=== PATIENT | female | born 1935 | race African-American/Black ===

== ENCOUNTER 2020-11-30 16:00 | Emergency (ER) | payer MEDICARE ==
[~2020-11-30] VITALS: Ht 152.4 cm; Wt 75.9 kg
--- NOTE | 2020-11-30 17:37 | RAD ---
Study: XR SHOULDER_RIGHT 2+ VIEWS Indication: Fall. Comparison: None. Findings: Alignment is within normal limits. No acute fracture. Probable small focus of hydroxyapatite depositi on in the region of the infraspinatus insertion. Arthrosis is minimal for patient age. Impression: No acute fracture or malalignment seen at the right shoulder. Electronically signed by: ROLAN RUBIN MD (11/30/2020 5:34 PM) [facility]
--- NOTE | 2020-11-30 17:37 | RAD ---
Exam: CT head and cervical spine without contrast INDICATION: Fall TECHNIQUE: Sequential axial images through the head and cervical spine were obtained without the admi nistration of IV contrast. Exposure: One or more of the following in the visualized dose reduction techniques were utilized for this examination: 1. Automated exposure control 2. Adjustment of the MA and/or KV according to patient size 3. Use of iterative of reconstructive technique Comparisons: None FINDINGS: Head: No focal parenchymal lesion or hemorrhage is identified. There is no midline shift or sulcal effaceme nt. No acute vascular territory infarction is identified. Sharpe-white distinction is preserved. The ventricular system is within normal limits without compression hydrocephalus. The basal cisterns are well maintained. The visualized portions of the paranasal sinuses and mastoid air cells are well-pneumatized. No acute fractures. Cervical spine: Straightening of the cervical spine which may positional. Grade 1 anterolisthesis of C4 on C5. Fracture to the cervical spine is not identified. Multilevel spondylotic change in the cervical spine with degenerative disc disease greatest at C4-C5, C5-C6. Mild bilateral facet arthropathy is also noted in the cervical spine. Visualized paraspinal soft tissues are unremarkable. IMPRESSION: 1. No acute intracranial abnormality. 2. Negative CT C-spine for acute traumatic injury. Electronically signed by: Terrell Calhoun MD (11/30/2020 5:34 PM) [facility]
--- NOTE | 2020-11-30 17:39 | RAD ---
Study: XR BILATERAL HIP (WITH OR WITHOUT PELVIS) 2 VIEWS_RIGHT Indication: Fall. Comparison: None. Findings: No acute fracture or malalignment seen at the right hip. Intact obturator rings. Mild localized thickening of the medial cortex on the left just below the lesser trochanter. Incompletely assessed degenerative changes at the lower lumbar spine. No malalignment across the sacr oiliac joints or pubic symphysis. Impression: 1. No acute fracture or malalignment. 2. Mild thickening of the medial cortex on the left just below the lesser trochanter. Correlate for a ny left hip pain and follow-up radiographs could be performed in 2-4 weeks to help exclude a developi ng stress fracture. Electronically signed by: ROLAN RUBIN MD (11/30/2020 5:37 PM) [facility]
--- NOTE | 2020-11-30 17:41 | RAD ---
Study: XR KNEE 4 VIEWS WITH PATELLA_RT Indication: Fall. Comparison: None. Findings: No acute fracture. Alignment is anatomic. Maintained femorotibial compartment joint space height. Min imal arthrosis for patient age with tiny osteophytes at a few locations. No large knee joint effusion. Impression: 1. No acute osseous abnormality. 2. Minimal knee joint arthrosis for patient age. Electronically signed by: ROLAN RUBIN MD (11/30/2020 5:39 PM) [facility]
--- NOTE | 2020-11-30 18:19 | PHYS DOC ---
Past History Past Medical History: Diabetes, Hypertension, Kidney Stones (LEIGHA CLARK APRN) Past Surgical History: Cholecystectomy, Hysterectomy, Oophorectomy, Other Additional Past Surgical Histo: lithrotipsy (LEIGHA CLARK APRN) Alcohol Use: Occasionally (LEIGHA CLARK APRN) Adult General Chief Complaint Chief Complaint: MECHANICAL FALL HPI HPI Patient is a 85-year-old female who presents to the emergency department with complaints of a slip and fall down her steps. Patient's family states she had a 17-minute loss of consciousness. Patient arrives to the emergency department complaining of head pain neck pain right shoulder pain right hip pain and right knee pain. Patient states she has a history of hypertension, type 2 diabetes, and high cholesterol. Patient reports taking amlodipine, potassium supplement, Metformin, daily 81 mg aspirin, a fish oil supplement, and simvastatin. Patient's family states that the patient is visiting from out of town. Patient denies any visual disturbances, denies chest pain, denies shortness of breath, denies nausea, vomiting, or diarrhea. Patient reports an 8/10 on a 1-10 pain scale. Patient reports her last tetanus shot was greater than 5 years ago. (LEIGHA CLARK APRN) Review of Systems Review of Systems 14 body systems of review of systems have been reviewed. See HPI for pertinent positives and negative responses, otherwise all other systems are negative, nonpertinent or noncontributory. (LEIGHA CLARK APRN) Allergies Allergies Allergies Coded Allergies Type Severity Reaction Last Updated Verified Iodine and Iodide Containing Produc Allergy Severe Anaphylaxis 11/30/20 Yes lisinopril Allergy Unknown 11/30/20 Yes Uncoded Allergies Type Severity Reaction Last Updated Verified SULFA Allergy Severe Anaphylaxis 11/30/20 (LEIGHA CLARK APRN) Physical Exam Physical Exam Constitutional: Well developed, well nourished, no acute distress, non-toxic appearance. 85-year-old female no apparent distress. HENT: Normocephalic, atraumatic, bilateral external ears normal, oropharynx moist, no oral exudates, nose normal. No depressions or hematomas appreciated of the scalp. No drooling, no trismus, no drainage from nasal turbinates, no drainage from bilateral external auditory canals, bilateral TMs within normal limits however partially obstructed by cerumen. No raccoon eyes, no farris sign. Eyes: PERRLA, EOMI, conjunctiva normal, no discharge. Neck: Normal range of motions, supple, no stridor. Tenderness to palpation along right side of neck. No C-spine tenderness to palpation. No step-offs, no crepitus appreciated, no bruising of the neck appreciated. Cardiovascular:Heart rate regular rhythm, no murmur, heart sounds S1-S2 to auscultation Lungs & Thorax: Bilateral breath sounds clear to auscultation no adventitious lung sounds appreciated. Abdomen: Bowel sounds normal, soft, no tenderness, no masses, no pulsatile masses. Skin: Warm, dry, no erythema, no rash. There is a small 3 cm x 1/2 cm abrasion to the right english, no bleeding. Back: No tenderness, no CVA tenderness. Extremities: No tenderness, no cyanosis, no clubbing, ROM intact, no edema. Except for right shoulder, right hip, and right knee, patient complains of pain to palpation. No crepitus appreciated, no deformities appreciated, distal cap refill less than 2 seconds, +2 dorsalis pedis/posterior tibial pulse. Neurologic: Alert and oriented X 3, normal motor function, normal sensory function, no focal deficits noted. Psychologic: Affect normal, judgement normal, mood normal. (LEIGHA CLARK APRN) Current Patient Data Vital Signs Vital Signs Date Time Temp Pulse Resp B/P (MAP) Pulse Ox O2 Delivery O2 Flow Rate FiO2 11/30/20 16:16 98.3 81 12 188/98 (128) 96 Room Air (LEIGHA CLARK APRN) EKG EKG EKG performed at 1852 by house respiratory therapy staff shows a heart rate of 76 bpm normal sinus rhythm without ectopy, PA interval 0.140, QTc interval 0.474, no acute STEMI, no ACS, no acute ischemia appreciated, EKG interpreted by ED attending physician Dr. Anderson. (LEIGHA CLARK APRN) EKG My interpretation EKG shows a sinus rhythm at 76 bpm. The does have a leftward axis. And left bundle branch block. No findings acute STEMI of contralateral changes. (JENN ANDERSON MD) Radiology/Procedures Radiology/Procedures [] PATIENT: JULES HOLT ACCOUNT: [id number] : 1935 LOCATION: ER AGE: 85 SEX: F EXAM STATUS: REG ER ORD. PHYSICIAN: LEIGHA CLARK APRN REASON: FALL PROCEDURE: CT HEAD AND CERVICAL SPINE WO Exam: CT head and cervical spine without contrast INDICATION: Fall TECHNIQUE: Sequential axial images through the head and cervical spine were obtained without the administration of IV contrast. Exposure: One or more of the following in the visualized dose reduction techniques were utilized for this examination: 1. Automated exposure control 2. Adjustment of the MA and/or KV according to patient size 3. Use of iterative of reconstructive technique Comparisons: None FINDINGS: Head: No focal parenchymal lesion or hemorrhage is identified. There is no midline shift or sulcal effacement. No acute vascular territory infarction is identified. Sharpe-white distinction is preserved. The ventricular system is within normal limits without compression hydrocephalus. The basal cisterns are well maintained. The visualized portions of the paranasal sinuses and mastoid air cells are well- pneumatized. No acute fractures. Cervical spine: Straightening of the cervical spine which may positional. Grade 1 anterolisthesis of C4 on C5. Fracture to the cervical spine is not identified. Multilevel spondylotic change in the cervical spine with degenerative disc disease greatest at C4-C5, C5-C6. Mild bilateral facet arthropathy is also noted in the cervical spine. Visualized paraspinal soft tissues are unremarkable. IMPRESSION: 1. No acute intracranial abnormality. 2. Negative CT C-spine for acute traumatic injury. Electronically signed by: Terrell Doll MD (11/30/2020 5:34 PM) [facility] DICTATED AND SIGNED BY: TERRELL DOLL MD DATE: 11/30/201728 CC: LEIGHA CLARK APRN; NON,STAFF ~MTH0 0 PATIENT: JULES HOLT ACCOUNT: [id number] : 1935 LOCATION: ER AGE: 85 SEX: F EXAM STATUS: REG ER ORD. PHYSICIAN: LEIGHA CLARK APRN REASON: FALL PROCEDURE: SHOULDER 2+V RIGHT Study: XR SHOULDER_RIGHT 2+ VIEWS Indication: Fall. Comparison: None. Findings: Alignment is within normal limits. No acute fracture. Probable small focus of hydroxyapatite deposition in the region of the infraspinatus insertion. Arthrosis is minimal for patient age. Impression: No acute fracture or malalignment seen at the right shoulder. Electronically signed by: ROLAN RUBIN MD (11/30/2020 5:34 PM) [facility] DICTATED AND SIGNED BY: ROLAN RUBIN MD DATE: 11/30/201732 CC: LEIGHA CLARK APRN; NON,STAFF ~MTH0 0 PATIENT: JULES HOLT ACCOUNT: [id number] : 1935 LOCATION: ER AGE: 85 SEX: F EXAM STATUS: REG ER ORD. PHYSICIAN: LEIGHA CLARK APRN REASON: FALL PROCEDURE: HIP RIGHT 2V WITH PELVIS Study: XR BILATERAL HIP (WITH OR WITHOUT PELVIS) 2 VIEWS_RIGHT Indication: Fall. Comparison: None. Findings: No acute fracture or malalignment seen at the right hip. Intact obturator rings. Mild localized thickening of the medial cortex on the left just below the lesser trochanter. Incompletely assessed degenerative changes at the lower lumbar spine. No malalignment across the sacroiliac joints or pubic symphysis. Impression: 1. No acute fracture or malalignment. 2. Mild thickening of the medial cortex on the left just below the lesser trochanter. Correlate for any left hip pain and follow-up radiographs could be performed in 2-4 weeks to help exclude a developing stress fracture. Electronically signed by: ROLAN RUBIN MD (11/30/2020 5:37 PM) [facility] DICTATED AND SIGNED BY: ROLAN RUBIN MD DATE: 11/30/201733 CC: LEIGHA CLARK APRN; NON,STAFF ~MTH0 0 PATIENT: JULES HOLT ACCOUNT: [id number] : 1935 LOCATION: ER AGE: 85 SEX: F EXAM STATUS: REG ER ORD. PHYSICIAN: LEIGHA CLARK APRN REASON: FALL PROCEDURE: KNEE RIGHT 4V Study: XR KNEE 4 VIEWS WITH PATELLA_RT Indication: Fall. Comparison: None. Findings: No acute fracture. Alignment is anatomic. Maintained femorotibial compartment joint space height. Minimal arthrosis for patient age with tiny osteophytes at a few locations. No large knee joint effusion. Impression: 1. No acute osseous abnormality. 2. Minimal knee joint arthrosis for patient age. Electronically signed by: ROLAN RUBIN MD (11/30/2020 5:39 PM) [facility] DICTATED AND SIGNED BY: ROLAN RUBIN MD DATE: 11/30/201737 CC: LEIGHA CLARK APRN; NON,STAFF ~MTH0 0 (LEIGHA CLARK APRN) Heart Score C/O Chest Pain: No Risk Factors: Risk Factors: DM, Current or recent (<one month) smoker, HTN, HLP, family h istory of CAD, obesity. Risk Scores: Risk Factors: DM, Current or recent (<one month) smoker, HTN, HLP, family history of CAD, obesity. (LEIGHA CLARK APRN) Course & Med Decision Making Course & Med Decision Making Pertinent Labs and Imaging studies reviewed. (See chart for details) 85-year-old female, vital signs reviewed, presents emergency department concerning a fall with a 17-minute loss of consciousness witnessed and timed by family. Physical examination concerning for pain to multiple joints and bones most likely related to patient's complaint fall. Will CT head and C-spine without contrast, for right shoulder, right knee, right hip x-ray. Give 15 mg Toradol for pain. The patient's tetanus status was greater than 5 years, DTaP ordered, patient's tetanus status brought up-to-date today in the emergency department. Right english abrasion cleansed and dressed with Polysporin by ED nursing staff. CT head and C-spine negative for acute process, CT of right shoulder and right knee negative for acute process, Mild thickening of the medial cortex on the left just below the lesser trochanter. Correlate for any left hip pain and follow-up radiographs could be performed in 2-4 weeks to help exclude a developing stress fracture. Discussed with patient and patient's family admission to hospital related to x- ray finding of right hip, and fall with 17-minute loss of consciousness. Patient's family and patient is amenable to this plan. Called and reviewed case with hospital inpatient management Dr. Dickson who agreed to accept patient in transfer to [facility] with the information he was given by me. Dr. Dickson requested CT imaging hip related to radiologist interpretation of questionable developing stress fracture. Will order test prior to patient's transfer to [facility]. Discussed transfer to [facility] with patient to be cared for by hospital inpatient management Dr. Dickson, patient is amenable to this plan. Currently awaiting ambulance transfer to [facility]. (LEIGHA CLARK APRN) Dragon Disclaimer Dragon Disclaimer This electronic medical record was generated, in whole or in part, using a voice recognition dictation system. (LEIGHA CLARK APRN) Departure Departure: Impression: Primary Impression: Fall (on) (from) other stairs and steps, initial encounter Additional Impressions: Loss of consciousness Abnormal x-ray of extremity Abrasion Need for DTaP vaccine Disposition: 02 SHORT TERM HOSPITAL Admitting Physician: Bharat Dickson (Patient transferred to [facility] to Dr. Dickson.) (LEIGHA CLARK APRN) Referrals: NON,STAFF (PCP) Attending Signature Attending Signature I have participated in the care of this patient and I have reviewed and agree with all pertinent clinical information above including history, exam, and re commendations. (JENN ANDERSON MD) Problem Qualifiers LEIGHA CLARK APRN November 30, 2020 18:19 JENN ANDERSON MD November 30, 2020 19:06
[2020-11-30] MEDS ORDERED: KETOROLAC 15 MG/ML VIAL. IVP ONE (18:45)
[2020-11-30 19:31] LABS: BASO # 0.1 x10^3/uL (0.0-0.2); BASO % 0 % (0-3); EOS # 0.2 x10^3/uL (0.0-0.7); EOS % 1 % (0-3); HEMATOCRIT 36.4 % (36.0-47.0); LYMPH # 2.3 x10^3/uL (1.0-4.8); LYMPH % 14 % (24-48); MEAN CORPUSCULAR HEMOGLOBIN 33 pg (25-35); MEAN CORPUSCULAR HGB CONC 33 g/dL (31-37); MEAN CORPUSCULAR VOLUME 101 fL (79-100); MONO % 6 % (0-9); NEUT # 12.3 x10^3uL (1.8-7.7); NEUT % 78 % (31-73); PLATELET COUNT 433 x10^3/uL (140-400); RED BLOOD COUNT 3.59 x10^6/uL (3.50-5.40); RED CELL DISTRIBUTION WIDTH 14.9 % (11.5-14.5); WHITE BLOOD COUNT 15.8 x10^3/uL (4.0-11.0)
[2020-11-30 19:37] LABS: CALCIUM 8.8 mg/dL (8.5-10.1); GFR 63.9; POTASSIUM 3.5 mmol/L (3.5-5.1)
[2020-11-30 19:43] LABS: ALBUMIN 3.4 g/dL (3.4-5.0); ALBUMIN/GLOBULIN RATIO 0.8 (1.0-1.7); TOTAL BILIRUBIN 0.4 mg/dL (0.2-1.0); TOTAL PROTEIN 7.7 g/dL (6.4-8.2)
[2020-11-30 19:53] LABS: % BANDS 1 % (0-9); % BASOS 1 % (0-3); % EOS 1 % (0-5); % LYMPHS 21 % (24-48); % MONOS 2 % (0-10); % SEGS 74 % (35-66)
[2020-11-30 19:54] LABS: PLT ESTIMATE INCREASED (ADEQUATE)
[2020-11-30] MEDS ORDERED: BACITRACIN ZINC TOPICAL OINT PACKET. TP ONE (20:00)
[2020-11-30 20:05] LABS: MAGNESIUM 1.6 mg/dL (1.8-2.4); PHOSPHORUS 3.2 mg/dL (2.6-4.7)
--- NOTE | 2020-11-30 20:14 | EKG ---
[address] [address] Test Date: 2020-11-30 Test Time: 18:52:43 Pat Name: JULES HOLT Department: Room: Gender: F [employer]: : 1935 Requested By: LEIGHA CLARK Order Number: [id number] Reading MD: Measurements Intervals [place]eter Rate: 76 P: 1 AK: 140 QRS: -42 QRSD: 124 T: 106 QT: 422 QTc: 474 Interpretive Statements SINUS RHYTHM ABNORMAL LEFT AXIS DEVIATION LEFT BUNDLE BRANCH BLOCK ABNORMAL ECG RI6.02 No previous ECG available for comparison
[2020-11-30] MEDS ORDERED: DIPH,PERTUSS(ACELL),TET VAC/PF 0.5 ML SYRINGE. VAX IM ONE (20:15)
--- NOTE | 2020-11-30 22:09 | RAD ---
STUDY: CT of the right lower extremity without contrast INDICATION: Right hip pain. COMPARISON: Same day radiographs. TECHNIQUE: Axial CT imaging of the right lower extremity/hip performed without contrast. Coronal and sagittal reformats were obtained. One or more of the following individualized dose reduction techniques were utilized for this examinat ion: 1. Automated exposure control 2. Adjustment of the mA and/or kV according to patient size 3. Use of iterative reconstruction technique. FINDINGS: No acute fracture or malalignment seen at the right hip. Mild right hip arthrosis. Chronic changes at the greater trochanter.. The right obturator ring is intact. Pubic symphysis arthrosis. Reticulation of the fat lateral to the right hip could be bland edema or related to contusion. No evidence for a large hip joint effusion. Colonic diverticuli. IMPRESSION: 1. No acute fracture at the right hip. Mild arthrosis. If there is ongoing concern MRI would be more sensitive and could also better assess for soft tissue injury. 2. Either bland edema or mild subcutaneous contusion lateral to the right hip. Electronically signed by: ROLAN RUBIN MD (11/30/2020 10:07 PM) [facility]
--- NOTE | 2020-11-30 22:59 | RAD ---
STUDY: CT of the left lower extremity without contrast INDICATION: Possible stress fracture at the proximal left femur. COMPARISON: Same day radiographs. TECHNIQUE: Axial CT imaging of the left lower extremity/hip performed without contrast. Coronal and s agittal reformats were obtained. One or more of the following individualized dose reduction techniques were utilized for this examinat ion: 1. Automated exposure control 2. Adjustment of the mA and/or kV according to patient size 3. Use of iterative reconstruction technique. FINDINGS: The small area of cortical thickening at the medial cortex of the left femur a few centimeters below the lesser trochanter is favored remodeling at an enthesis. No ancillary findings to suggest otherwis e. No acute fracture seen at the left hip. Chronic changes along the greater tuberosity. Minimal hip arthrosis. Colonic diverticulosis. IMPRESSION: No acute fracture or malalignment at the left hip. On the same day radiographs the abnormality at the medial femoral cortex below the lesser trochanter is favored remodeling at enthesis. No dedicated fo llow-up is needed unless otherwise clinically indicated noting that if follow-up is performed MRI wou ld be more beneficial than CT. Electronically signed by: ROLAN RUBIN MD (11/30/2020 10:56 PM) [facility]
[2020-11-30 23:30] VITALS: BP 141/80
== END 2020-11-30 23:41 | disposition short-term general hospital (02) ==
LOC: ER 16:00
DX: S80.811A Abrasion, right lower leg, initial encounter (principal); R55 Syncope and collapse; R93.6 Abnormal findings on diagnostic imaging of limbs; M54.2 Cervicalgia; R51.9 Headache, unspecified; M25.511 Pain in right shoulder; M25.551 Pain in right hip; M25.561 Pain in right knee; E78.00 Pure hypercholesterolemia, unspecified; I10 Essential (primary) hypertension; E11.9 Type 2 diabetes mellitus without complications; Z87.442 Personal history of urinary calculi; Z88.8 Allergy status to other drugs, medicaments and biological substances; W10.8XXA Fall (on) (from) other stairs and steps, initial encounter; Y93.89 Activity, other specified; Y92.89 Other specified places as the place of occurrence of the external cause; Y99.8 Other external cause status
CPT/HCPCS: 36415; 70450; 72125; 73030; 73502; 73564; 73700; 80053; 83735; 84100; 85007; 85025; 90471; 90715; 93005; 96374; 99285; J1885